=== PATIENT | male | born 1980 | race Caucasian/White ===

== ENCOUNTER 2017-10-02 03:39 | Emergency (ER) | payer BC ==
[~2017-10-02] VITALS: Ht 182.9 cm; Wt 109.8 kg
[~2017-10-02 03:39] MED LIST: CEPH500 PO; Flomax0.4 MG PO; GABA300 PO; GENT.3OPSA OD; HYDACE5 PO; IBUP400 PO; IBUP800 PO; METCAR750 PO; NAPR500 PO; Norco 5-325 Ta1 EACH PO; OXYACE5T PO; OXYACE7.5T PO; PROM25 PO; RXOXYACE PO; TUMS300 MG
[2017-10-02] MEDS ORDERED: CEFD300 PO (04:21)
[2017-10-02] MEDS ORDERED: PSEU120ER PO (04:49)
[2017-10-02] MEDS ORDERED: Norco 10-325 T1 EACH PO (04:49)
== END 2017-10-02 05:15 | disposition home or self-care (01) ==
LOC: ER 03:39
DX: H66.93 Otitis media, unspecified, bilateral (principal); Z88.0 Allergy status to penicillin; Z79.899 Other long term (current) drug therapy
CPT/HCPCS: 96372; 99283; J1885

== ENCOUNTER 2021-10-15 20:20 | Emergency (ER) | payer OTHER ==
[~2021-10-15] VITALS: Ht 185.4 cm; Wt 117.9 kg
[~2021-10-15 20:20] MED LIST changes: +AMPDEX15CR PO; +CEFD300 PO; +HYDR1TAB94 PO; +Norco 10-325 T1 EACH PO; +PSEU120ER PO; +SERT100 PO
[2021-10-15 21:23] LABS: Influenza A, PCR NEGATIVE (NEGATIVE); Influenza B, PCR NEGATIVE (NEGATIVE); Resp Syncytial Virus, PCR NEGATIVE (NEGATIVE); SARS-Cov-2 (COVID-19) PCR, MMC NEGATIVE (NEGATIVE)
[2021-10-15] MEDS ORDERED: Zithromax250 MG PO (23:18)
== END 2021-10-15 23:40 | disposition home or self-care (01) ==
LOC: ER 20:20
PROVIDERS: Student in an Organized Health Care Education/Training Program
DX: J18.9 Pneumonia, unspecified organism (principal); Z20.822 Contact with and (suspected) exposure to COVID-19; Z79.899 Other long term (current) drug therapy; Z79.2 Long term (current) use of antibiotics; Z88.0 Allergy status to penicillin
CPT/HCPCS: 0241U; 36415; 71045; 99284-25; A9270; J7030

== ENCOUNTER 2023-01-04 22:05 | Emergency (ER) | payer SELFPAY ==
[~2023-01-04] VITALS: Ht 185.4 cm; Wt 116.1 kg
[~2023-01-04 22:05] MED LIST changes: +Zithromax250 MG PO
[2023-01-04 22:12] VITALS: BP 102/63
== END 2023-01-05 02:29 | disposition home or self-care (01) ==
LOC: ER 22:05
DX: N43.3 Hydrocele, unspecified (principal); Z88.0 Allergy status to penicillin; Z79.899 Other long term (current) drug therapy
CPT/HCPCS: 76870

== ENCOUNTER → 2023-09-04 | Outpatient (CLI) | payer BC ==
[2023-09-04 15:29] LABS: Hemoglobin 16.9 g/dL (13.5-17.5); Mean Corpuscular HGB 30.5 pg (26.0-34.0); Mean Corpuscular HGB Conc 33.8 g/dL (31.5-36.5); Mean Corpuscular Volume 90 fL (80-100); Mean Platelet Volume 9.3 fL (9.1-12.4); Platelet Count 187 K/mm3 (150-400); RDW Standard Deviation 42.7 fL (35.1-46.3); Red Blood Cell Count 5.54 M/mm3 (4.30-5.90); White Blood Cell Count 9.53 K/mm3 (4.00-11.30)
[2023-09-04 15:41] LABS: Bun/Creatinine Ratio 7.3 (12.0-20.0); Calcium, Blood 8.6 mg/dL (8.5-10.1); Creatinine, Blood 1.37 mg/dL (0.60-1.20); Potassium, Blood 4.1 mmol/L (3.5-5.5)
[2023-09-04 16:08] LABS: Thyroid Stimulating Hormone 1.509 uIU/mL (0.360-4.800)
[2023-09-04 16:12] LABS: LYMPHOCYTES PERCENT MAN 46 % (21-46); NEUTROPHILS ABSOLUTE MAN 2.95 K/mm3 (1.96-9.15); SEG NEUTROPHILS PERCENT MAN 31 % (41-73); TOTAL CELLS COUNTED 100
[2023-09-04 16:13] LABS: BASOPHILS ABSOLUTE MAN 0.09 K/mm3 (0.00-0.23); BASOPHILS PERCENT MAN 1 % (0-2); EOSINOPHILS ABSOLUTE MAN 0.19 K/mm3 (0.00-0.68); EOSINOPHILS PERCENT MAN 2 % (0-6); LYMPHOCYTES % ATYPICAL MANUAL 9 % (0-0); LYMPHOCYTES ABSOLUTE MAN 5.24 K/mm3 (0.84-5.20); MONOCYTES ABSOLUTE MAN 0.85 K/mm3 (0.16-1.47); MONOCYTES PERCENT MAN 9 % (4-13); OTHER CELL PERCENT MAN 2 % (0-0)
== END ==
LOC: LAB SHORT 15:25 → LAB 15:25
PROVIDERS: Physician Assistant Surgical
DX: R50.9 Fever, unspecified (principal)
CPT/HCPCS: 80048; 84443; 85025

== ENCOUNTER 2024-05-04 18:29 | Emergency (ER) | payer OTHER ==
[~2024-05-04] VITALS: Ht 180.3 cm; Wt 133.8 kg
[2024-05-04] MEDS ORDERED: NS 1,000 ML IV SCH (19:10)
[2024-05-04] MEDS ORDERED: Ondansetron HCl 2 MG / ML 2ML Vial IV PRN (19:10)
[2024-05-04 19:32] LABS: BASOPHILS ABSOLUTE AUTO 0.04 K/mm3 (0.00-0.23); BASOPHILS PERCENT AUTO 0 % (0-2); EOSINOPHILS PERCENT AUTO 0 % (0-6); Hematocrit 53.2 % (37.0-53.0); Hemoglobin 18.7 g/dL (13.5-17.5); IMMATURE GRAN ABSOLUTE AUTO 0.05 K/mm3 (0.00-0.10); IMMATURE GRAN PERCENT AUTO 0 % (0-1); LYMPHOCYTES ABSOLUTE AUTO 0.79 K/mm3 (0.84-5.20); LYMPHOCYTES PERCENT AUTO 7 % (21-46); MONOCYTES ABSOLUTE AUTO 0.69 K/mm3 (0.16-1.47); MONOCYTES PERCENT AUTO 6 % (4-13); Mean Corpuscular HGB 31.6 pg (26.0-34.0); Mean Corpuscular HGB Conc 35.2 g/dL (31.5-36.5); Mean Corpuscular Volume 90 fL (80-100); Mean Platelet Volume 9.6 fL (9.1-12.4); NEUTROPHILS PERCENT AUTO 87 % (41-73); Platelet Count 246 K/mm3 (150-400); RDW Coefficient Variation 12.5 % (11.7-14.2); RDW Standard Deviation 41.1 fL (35.1-46.3); Red Blood Cell Count 5.91 M/mm3 (4.30-5.90); White Blood Cell Count 11.77 K/mm3 (4.00-11.30)
[2024-05-04 19:50] LABS: Albumin, Blood 3.9 g/dL (3.4-5.0); Albumin/Globulin Ratio 1.1 (0.8-1.8); Bilirubin, Total 1.1 mg/dL (0.1-1.0); Bun/Creatinine Ratio 12.9 (12.0-20.0); Calcium, Blood 8.7 mg/dL (8.5-10.1); Creatinine, Blood 1.55 mg/dL (0.60-1.20); Globulin, Blood 3.6 g/dL (2.2-4.0); Potassium, Blood 4.3 mmol/L (3.5-5.5); Total Protein, Blood 7.5 g/dL (6.4-8.2)
[2024-05-04 21:04] LABS: Source, Urine Clean Catch
[2024-05-04 21:10] LABS: Appearance, Urine Hazy (Clear); Bilirubin, Urine Neg (Neg); Blood, Urine Neg (Neg); Color, Urine Yellow (P-Yellow); Glucose Qualitative, Urine Neg (Neg); Ketones, Urine 1+ (Neg); Leukocyte Esterase, Urine 1+ (Neg); Nitrite, Urine Neg (Neg); Protein, Urine 3+ (Neg); Specific Gravity, Urine 1.025 (1.003-1.022); Urobilinogen, Urine 1+ (Normal)
[2024-05-04 21:36] LABS: Amorphous Mod (0-Heavy); Bacteria Few /hpf; Hyaline Casts 50-100 /lpf (0-2); Mucus Heavy (0-Heavy); Red Blood Cells, Urine Not Seen /hpf (0-2); Squamous Epithelial Cells Not Seen /hpf (Few)
[2024-05-04] MEDS ORDERED: NS 1,000 ML IV ONE (22:40)
[2024-05-04 22:59] LABS: Magnesium, Blood 1.9 mg/dL (1.6-2.4)
[2024-05-05] MEDS ORDERED: Metoclopramide HCl 5MG / ML 2ML Vial IV ONE (01:40)
[2024-05-05] MEDS ORDERED: Ketorolac Tromethamine 15mg Vial IV ONE (01:40)
[2024-05-05 02:30] VITALS: BP 101/66
== END 2024-05-05 02:36 | disposition home or self-care (01) ==
LOC: ER 18:29
PROVIDERS: Emergency Medicine
DX: R10.9 Unspecified abdominal pain (principal); R55 Syncope and collapse; E86.0 Dehydration; D72.829 Elevated white blood cell count, unspecified; R11.2 Nausea with vomiting, unspecified; Z88.0 Allergy status to penicillin; Z79.899 Other long term (current) drug therapy
CPT/HCPCS: 70450; 71045; 74177; 80053; 81001; 83690; 83735; 84484; 85025; 93005; 93010; 96361; 96374-59; 96375; 99284-25; J1885; J2405; J2765; J7030; Q9967

== ENCOUNTER 2025-06-23 10:03 | Emergency (ER) | payer OTHER, BC ==
[~2025-06-23] VITALS: Ht 180.3 cm; Wt 120.2 kg
[2025-06-23 12:14] LABS: U Amphetamine Screen DETECTED; U Barbiturate Screen Not Detected; U Benzodiazapine Screen Not Detected; U Buprenorphine Screen Not Detected; U Cannabinoids Screen Not Detected; U Cocaine Screen Not Detected; U Methadone Screen Not Detected; U Methamphetamine Screen Not Detected; U Opiates Screen Not Detected; U Oxycodone Screen Not Detected; U Phencyclidine Screen Not Detected
[2025-06-23] MEDS ORDERED: IBUP800 PO (14:45)
[2025-06-23 14:52] VITALS: BP 154/96
== END 2025-06-23 14:52 | disposition home or self-care (01) ==
LOC: ER 10:03
PROVIDERS: Emergency Medicine
DX: S39.012A Strain of muscle, fascia and tendon of lower back, initial encounter (principal); S16.1XXA Strain of muscle, fascia and tendon at neck level, initial encounter; S66.912A Strain of unspecified muscle, fascia and tendon at wrist and hand level, left hand, initial encounter; S66.911A Strain of unspecified muscle, fascia and tendon at wrist and hand level, right hand, initial encounter; S86.111A Strain of other muscle(s) and tendon(s) of posterior muscle group at lower leg level, right leg, initial encounter; S09.90XA Unspecified injury of head, initial encounter; V64.5XXA Driver of heavy transport vehicle injured in collision with heavy transport vehicle or bus in traffic accident, initial encounter
CPT/HCPCS: 70450; 73130; 73590; 99284-25; A9270